=== PATIENT | female | born 1955 | race Caucasian/White ===

== ENCOUNTER 2022-05-10 10:13 | Outpatient (CLI) | payer MEDICARE, SELFPAY ==
[2022-05-10 18:59] LABS: Alanine Aminotransferase 17 U/L (6-35); Albumin Level 4.5 g/dL (3.5-5.1); Alkaline Phosphatase 95 U/L (38-126); Anion Gap 10 mmol/L (8-16); Aspartate Amino Transferase 35 U/L (14-36); Bilirubin,Total 0.5 mg/dL (0.2-1.3); Blood Urea Nitrogen 18 mg/dL (7-17); Calcium 9.4 mg/dL (8.4-10.2); Carbon Dioxide 29 mmol/L (22-30); Chloride 101 mmol/L (98-107); Cholesterol 200 mg/dL (0-200); Estimated Glomerular Filt Rate > 60; Glucose 105 mg/dL (65-110); HDL Direct 85 mg/dL; Potassium 4.5 mmol/L (3.4-5.0); Sodium 140 mmol/L (137-145); Triglycerides 75 mg/dL (<150)
[2022-05-10 19:10] LABS: LDL Cholesterol Direct 76 mg/dL
[2022-05-10 20:05] LABS: Folic Acid 7.3 ng/mL (2.76->20)
[2022-05-10 20:52] LABS: Hemoglobin A1C 5.9 % (<5.7)
== END 2022-05-10 10:14 | disposition home or self-care (01) ==
LOC: ANHGOSHLAB 10:21
PROVIDERS: PCP Family Medicine; Visit Provider Family Medicine
DX: E78.5 Hyperlipidemia, unspecified (principal); Z13.228 Encounter for screening for other metabolic disorders; E53.8 Deficiency of other specified B group vitamins; R73.03 Prediabetes; E03.9 Hypothyroidism, unspecified
CPT/HCPCS: 36415; 80053; 80061; 82607; 82746; 83036; 84443

== ENCOUNTER → 2022-11-12 10:11 | Outpatient (CLI) | payer MEDICARE, SELFPAY ==
--- NOTE | ~2022-11-12 | XR_ITS ---
Right foot Technique: AP, oblique, and lateral views were obtained. Clinical History: Pain Findings: No acute fracture or dislocation is seen. Osseous alignment is anatomic. Joint spaces are p reserved without erosive or degenerative change. Soft tissues are unremarkable. Impression: Unremarkable right foot radiographs. Reviewed, dictated and finalized at location . [facility] Impression: Unremarkable right foot radiographs.
== END ==
PROVIDERS: PCP Family Medicine; Visit Provider Family Medicine
DX: M21.961 Unspecified acquired deformity of right lower leg (principal)
CPT/HCPCS: 73630

== ENCOUNTER 2022-12-24 01:00 | Day surgery (SDC) | payer MEDICARE, SELFPAY ==
[2022-12-24 06:23] VITALS: BP 131/66; PULSE 89; RESP 18; TEMP 36.5; O2SAT 96
[2022-12-24] MEDS: LACTATED RINGERS 1,000 ML 150 ML IV CONT (06:33)
--- NOTE | 2022-12-24 07:19 | WPDANESEPPF ---
Anes - Initial Pre Proc Eval Procedure: Operation Date: 12/24/22 07:30 Proposed Procedures p Screening Colonoscopy - Hermes Flores MD Date/Time: 12/24/22 07:19 Surgeon: Hermes Flores MD Pre Op Diagnosis: neoplasm screening Patient Data Age: 67 Gender: F Height: 1.57 m Weight: 61.4 kg Last Vital Signs Temp 97.7 F 12/24/22 06:23 Pulse 89 12/24/22 06:23 Resp 18 12/24/22 06:23 BP 131/66 12/24/22 06:23 Pulse Ox 96 12/24/22 06:23 O2 Del Method Room Air 12/24/22 06:23 Allergies Allergy/AdvReac Type Severity Reaction Status Date / Time hydrocodone Allergy Unknown Hives Verified 12/24/22 06:22 Home Medications Medication Instructions Recorded Confirmed Type cholecalciferol (vitamin D3) 25 2,000 unit PO DAILY 08/20/19 12/14/22 History mcg (1,000 unit) capsule cyanocobalamin (vitamin B-12) 100 mcg subcut MONTHLY 08/20/19 12/14/22 History 1,000 mcg/mL injection solution fluticasone propionate 50 2 spray intranasal DAILY 08/20/19 12/14/22 History mcg/actuation nasal spray,suspension (Allergy Relief (fluticasone)) omeprazole 40 mg capsule,delayed 40 mg PO DAILY #90 caps 04/13/22 12/14/22 Rx release diltiazem HCl 180 mg 180 mg PO DAILY #90 tabs 08/06/22 12/14/22 Rx tablet,extended release 24 hr levothyroxine 100 mcg tablet 100 mcg PO DAILY #90 tabs 10/29/22 12/14/22 Rx rosuvastatin 20 mg tablet (Crestor) 10 mg PO DAILY #15 tabs 11/09/22 12/14/22 Rx azelastine 137 mcg (0.1 %) nasal 2 spray intranasal BID PRN Allergy 11/12/22 12/14/22 History spray aerosol Symptoms estradiol-norethindrone acet 0.5 1 tablet PO DAILY 11/12/22 12/14/22 History mg-0.1 mg tablet pirfenidone 801 mg tablet 801 mg PO TID 11/12/22 12/14/22 History semaglutide 1 mg/dose (4 mg/3 mL) 1 mg (0.75 mL) subcut WEEKLY #3 mL 11/12/22 12/14/22 Rx subcutaneous pen injector sertraline 25 mg tablet 25 mg PO DAILY 11/12/22 12/14/22 History Patient hx anesthesia problems: none Family hx anesthesia problems: none Results Review: All pre-operative results and documents have been reviewed as part of the pre-operative evaluation. [facility] Past Medical History Medical History Due for fasting blood test Family History Family History Mother Diabetes mellitus Family history of emphysema Grandparent Hypertension Family history of dementia Sibling Cerebrovascular accident Family history of coronary artery disease Social History Social History Smoking status: Never smoker Alcohol intake: never Substance use: never Substance use type: does not use Lack of Transportation: No Lack of Food: Never True Current Housing: I Have Housing Concerned About Future Housing: No Difficulty Paying Gas/Electric Bills: No Difficulty Paying for Meds: No Currently Unemployed: No Education: Associate Degree Difficulty w/ Childcare or Family Care: No Living arrangements: with family Occupation/Education: retired Gender identity (if verbalized by the patient): Female Sexual Orientation (if Verbalized by the Patient): Straight or Heterosexual Spiritual care concerns: No Agree to blood products: Yes Anes - Eval Final PreProcedure Day of Procedure 12/24/22 07:19 Patient weight: normal Heart: regular rate and rhythm Lungs: clear to auscultation Airway: Mallampati scale class II Neurological: alert and oriented Last oral intake: >/= 8 hours ASA classification: III Emergent: no Anesthetic plan: proceed Anesthesia type and monitoring: general GIVS and standard monitoring Results Review: All pre-operative results and documents have been reviewed as part of the pre-operative evaluation. Informed Consent: The patient's anesthetic plan and its attendant risks and benefits were discussed with the patient/fami
--- NOTE | 2022-12-24 07:32 | PM.HPGS ---
History of Present Illness History of Present Illness Consent: Risks, benefits, and alternatives have been discussed and questions answered. Patient agrees to proceed with procedure. Chief complaint: neoplasm screening Narrative: Paulina Mccall is a 67 year old female Presents for screening colonoscopy. Patient's current weight appetite and bowel movements are normal. Patient denies abdominal pain. She has had no bleeding. Family history is significant both mother and uncle of had colon cancer. Patient reports she did have a prior colonoscopy 10 years ago that did reveal colon polyps. Patient presents today for neoplasia screening. Review of Systems Review of Systems: Review of systems noncontributory. [facility] Past Medical History Medical History Due for fasting blood test Family History Family History Mother Diabetes mellitus Family history of emphysema Grandparent Hypertension Family history of dementia Sibling Cerebrovascular accident Family history of coronary artery disease Social History Social History Smoking status: Never smoker Alcohol intake: never Substance use: never Substance use type: does not use Lack of Transportation: No Lack of Food: Never True Current Housing: I Have Housing Concerned About Future Housing: No Difficulty Paying Gas/Electric Bills: No Difficulty Paying for Meds: No Currently Unemployed: No Education: Associate Degree Difficulty w/ Childcare or Family Care: No Living arrangements: with family Occupation/Education: retired Gender identity (if verbalized by the patient): Female Sexual Orientation (if Verbalized by the Patient): Straight or Heterosexual Spiritual care concerns: No Agree to blood products: Yes Meds Home Medications and Allergies Home Medications Medication Instructions Recorded Confirmed Type cholecalciferol (vitamin D3) 25 2,000 unit PO DAILY 08/20/19 12/14/22 History mcg (1,000 unit) capsule cyanocobalamin (vitamin B-12) 100 mcg subcut MONTHLY 08/20/19 12/14/22 History 1,000 mcg/mL injection solution fluticasone propionate 50 2 spray intranasal DAILY 08/20/19 12/14/22 History mcg/actuation nasal spray,suspension (Allergy Relief (fluticasone)) omeprazole 40 mg capsule,delayed 40 mg PO DAILY #90 caps 04/13/22 12/14/22 Rx release diltiazem HCl 180 mg 180 mg PO DAILY #90 tabs 08/06/22 12/14/22 Rx tablet,extended release 24 hr levothyroxine 100 mcg tablet 100 mcg PO DAILY #90 tabs 10/29/22 12/14/22 Rx rosuvastatin 20 mg tablet (Crestor) 10 mg PO DAILY #15 tabs 11/09/22 12/14/22 Rx azelastine 137 mcg (0.1 %) nasal 2 spray intranasal BID PRN Allergy 11/12/22 12/14/22 History spray aerosol Symptoms estradiol-norethindrone acet 0.5 1 tablet PO DAILY 11/12/22 12/14/22 History mg-0.1 mg tablet pirfenidone 801 mg tablet 801 mg PO TID 11/12/22 12/14/22 History semaglutide 1 mg/dose (4 mg/3 mL) 1 mg (0.75 mL) subcut WEEKLY #3 mL 11/12/22 12/14/22 Rx subcutaneous pen injector sertraline 25 mg tablet 25 mg PO DAILY 11/12/22 12/14/22 History Allergies Allergy/AdvReac Type Severity Reaction Status Date / Time hydrocodone Allergy Unknown Hives Verified 12/24/22 06:22 Vital Signs Vital Signs - 24 hr 12/24/22 06:23 Temperature 97.7 F Pulse Rate 89 Respiratory Rate 18 Blood Pressure 131/66 Pulse Oximetry 96 Oxygen Delivery Room Air Exam Narrative: Physical exam reveals patient to be alert. Vital signs stable. HEENT exam is unremarkable. Patient is anicteric. Lungs are clear to auscultation and percussion. Heart is without murmur or extra sounds. Abdomen bowel sounds are present soft nontender with no organomegaly. Digital external rectal exam is normal. Assessment and Plan Assessment and plan (1) History of
[2022-12-24 08:03] VITALS: BP 98/56; PULSE 68; RESP 24; O2SAT 100
[2022-12-24 08:13] VITALS: BP 118/64; PULSE 77; RESP 15; O2SAT 100
[2022-12-24 08:23] VITALS: BP 133/80; PULSE 74; RESP 17; O2SAT 99
== END 2022-12-24 08:27 | disposition home or self-care (01) ==
PROVIDERS: PCP Family Medicine; Visit Provider Internal Medicine Gastroenterology
PROC: 0DJD8ZZ Inspection of Lower Intestinal Tract, Via Natural or Artificial Opening Endoscopic (ICD-10-PCS; CPT 45378; principal; 2022-12-24 07:30)
DX: Z12.11 Encounter for screening for malignant neoplasm of colon (principal); K57.30 Diverticulosis of large intestine without perforation or abscess without bleeding; Z86.010 Personal history of colon polyps; Z80.0 Family history of malignant neoplasm of digestive organs
CPT/HCPCS: G0105; J2704; J7120

== ENCOUNTER → 2023-01-28 11:14 | Outpatient (CLI) | payer MEDICARE, SELFPAY ==
--- NOTE | ~2023-01-28 | MM_ITS ---
EXAMINATION: MM screening jamie BI w michael HISTORY: Screening mammogram TECHNIQUE: Craniocaudal and mediolateral oblique 3-D tomosynthesis images were obtained and synthetic 2-D images were generated. CAD analysis was submitted and interpreted. COMPARISON: 04/13/2017 BREAST PARENCHYMAL COMPOSITION:There are scattered areas of fibroglandular density. FINDINGS: Stable area of relative distortion in the inner left breast, consistent benign finding give n the time interval. No suspicious mass, calcification, or architectural distortion are identified in either breast to suggest malignancy. There has been no suspicious interval change. IMPRESSION: No mammographic evidence of malignancy. Recommend routine screening mammography in one year. BI-RADS Category 1: Negative Reviewed, dictated and finalized at location .
== END ==
PROVIDERS: PCP Obstetrics & Gynecology; Visit Provider Family Medicine
DX: Z12.31 Encounter for screening mammogram for malignant neoplasm of breast (principal)
CPT/HCPCS: 77063; 77067

== ENCOUNTER 2023-05-27 10:21 | Outpatient (CLI) | payer MEDICARE, SELFPAY ==
[2023-05-27 19:21] LABS: Alanine Aminotransferase 33 U/L (6-35); Albumin Level 4.4 g/dL (3.5-5.1); Alkaline Phosphatase 97 U/L (38-126); Anion Gap 6 mmol/L (8-16); Aspartate Amino Transferase 50 U/L (14-36); Bilirubin,Total 0.4 mg/dL (0.2-1.3); Blood Urea Nitrogen 14 mg/dL (7-17); Calcium 8.9 mg/dL (8.4-10.2); Carbon Dioxide 30 mmol/L (22-30); Chloride 103 mmol/L (98-107); Cholesterol 176 mg/dL (0-200); Estimated Glomerular Filt Rate 55; Glucose 97 mg/dL (65-110); HDL Direct 85 mg/dL; Potassium 4.5 mmol/L (3.4-5.0); Sodium 139 mmol/L (137-145); Triglycerides 75 mg/dL (<150)
[2023-05-27 19:32] LABS: LDL Cholesterol Direct 65 mg/dL
[2023-05-27 20:17] LABS: Hemoglobin A1C 5.6 % (<5.7)
== END 2023-05-27 10:22 | disposition home or self-care (01) ==
PROVIDERS: PCP Family Medicine; Visit Provider Family Medicine
DX: E11.9 Type 2 diabetes mellitus without complications (principal); Z13.29 Encounter for screening for other suspected endocrine disorder; Z13.228 Encounter for screening for other metabolic disorders; Z13.220 Encounter for screening for lipoid disorders
CPT/HCPCS: 36415; 80053; 80061; 83036; 84443